=== PATIENT | male | born 1945 | race Caucasian/White ===

== ENCOUNTER 2018-06-27 09:35 | Day surgery (SDC) | payer BC, OTHER ==
[~2018-06-27] VITALS: Ht 180.3 cm; Wt 99.8 kg
[2018-06-27 10:50] LABS: PROTHROMBIN TIME 9.9 SECS (9.5-12.5)
[2018-06-27] MEDS ORDERED: LR 1,000 ML IV.SOLN IV ONE (11:30)
[2018-06-27] MEDS ORDERED: fentaNYL CITRATE/PF 100 MCG/2 ML AMP IVP ONE (11:30)
[2018-06-27] MEDS ORDERED: MIDAZOLAM HCL 5 MG/5 ML VIAL IVP ONE (11:30)
[2018-06-27] MEDS ORDERED: ONDANSETRON HCL 4 MG/2 ML VIAL IVP ONE (11:30)
[2018-06-27] MEDS ORDERED: SEVOFLURANE 15 MIN GAS INH ONE (11:30)
[2018-06-27] MEDS ORDERED: NS 1000 ML IV.SOLN IV ONE (11:30)
[2018-06-27] MEDS ORDERED: NS 500 ML IV.SOLN IV ONE (11:30)
[2018-06-27] MEDS ORDERED: DEXAMETHASONE SOD PHOSPHATE 4 MG/ML VIAL IVP ONE (11:30)
[2018-06-27] MEDS ORDERED: PROPOFOL 200MG/ 20ML VIAL (DIPRIVAN) IV ONE (11:30)
[2018-06-27] MEDS ORDERED: LIDOCAINE/EPI 1% 1:100000 20 ML VIAL INJ ONE (12:21)
[2018-06-27] MEDS ORDERED: OXYMETAZOLINE HCL 0.05% NASAL SPRAY NS ONE (12:21)
[2018-06-27 14:23] VITALS: BP_SYST 126
== END 2018-06-27 15:00 | disposition home or self-care (01) ==
LOC: SMU 09:35 → SDS 09:35
PROVIDERS: ATTEND Otolaryngology
DX: J34.2 Deviated nasal septum (principal); J34.89 Other specified disorders of nose and nasal sinuses; J44.9 Chronic obstructive pulmonary disease, unspecified; K21.9 Gastro-esophageal reflux disease without esophagitis; I10 Essential (primary) hypertension; H90.3 Sensorineural hearing loss, bilateral; J30.1 Allergic rhinitis due to pollen; E66.01 Morbid (severe) obesity due to excess calories; I25.10 Atherosclerotic heart disease of native coronary artery without angina pectoris; G62.9 Polyneuropathy, unspecified; M19.90 Unspecified osteoarthritis, unspecified site; Z91.013 Allergy to seafood; Z91.09 Other allergy status, other than to drugs and biological substances; Z87.891 Personal history of nicotine dependence; Z79.899 Other long term (current) drug therapy; Z79.82 Long term (current) use of aspirin; Z95.5 Presence of coronary angioplasty implant and graft
CPT/HCPCS: 30140; 30520; 36415; 85610; 85730; 88304; 88305; J7120; J1100; J2250; J2405; J2704; J3010; J7030; J7040